=== PATIENT | female | born 1980 ===

== ENCOUNTER → 2016-10-09 | Outpatient (CLI) | payer BC, OTHER ==
[~2016-10-09] MED LIST: IOPAMIDOL (ISOVUE-300) 100 ML BTL ONE; NS 500 ML IV ONE; methylPREDNISolone SOD SUCC 125 MG/2 ML VIAL IVP ONE; methylPREDNISolone SOD SUCC 125 MG/2 ML VIAL ONE
== END ==
LOC: FIMAGING 13:41
PROVIDERS: ATTEND Family Medicine Sports Medicine
DX: S39.91XA Unspecified injury of abdomen, initial encounter (principal)
CPT/HCPCS: J1200; Q9967